=== PATIENT | male | born 1950 | race Caucasian/White ===

== ENCOUNTER → 2019-05-24 | Outpatient (CLI) | payer MEDICARE | LOC: M LAB 11:29 | PROVIDERS: ATTEND Urology | DX: R97.20 Elevated prostate specific antigen [PSA] (principal) ==

== ENCOUNTER → 2020-07-03 | Outpatient (REF) | payer MEDICARE | LOC: M LABDRWAD 12:29 | DX: C61 Malignant neoplasm of prostate (principal) ==

== ENCOUNTER → 2021-06-30 | Outpatient (REF) | payer MEDICARE | LOC: M LABDRWAD 12:33 | PROVIDERS: ATTEND Nurse Practitioner Critical Care Medicine | DX: C61 Malignant neoplasm of prostate (principal) ==